=== PATIENT | male | born 2000 | race Caucasian/White ===

== ENCOUNTER → 2024-11-02 15:17 | Outpatient (REF) | payer OTHER, SELFPAY | LOC: RAD 15:17 | PROVIDERS: ATTENDING PHYSICIAN Family Medicine | DX: R74.8 Abnormal levels of other serum enzymes (principal) | CPT/HCPCS: 76700 ==

== ENCOUNTER 2025-04-10 07:12 | Emergency (ER) | payer OTHER, SELFPAY ==
[2025-04-10 07:16] VITALS: BP 142/94
--- NOTE | 2025-04-10 07:20 | ED.GENMED ---
History of Present Illness
General
Chief Complaint: Abdominal Pain
Time Seen by Provider: 04/10/25 07:14
History of Present Illness
History of Present Illness:
24-year-old male with history of fatty liver disease on Zepbound presenting to the emergency department with abdominal pain. Patient states that he woke up at 6:13 AM with sharp abdominal pain that was in the epigastric region and radiated to his
right upper quadrant. He did try laying down however and laying down made the pain worse. It is never happened to him before. No issues with his pancreas. No alcohol use. He does state that he increases that found a few days ago. Mild nausea
no vomiting. No chest pain shortness of breath. No family history of blood clots or personal history of blood clots. No recent long car rides plane rides or hemoptysis. This is never happened to him before. He has had a prior appendectomy. No
problems with his gallbladder that he is aware of.
Past History
Past History
ED Past Medical History: Asthma
ED Past Surgical History: Appendectomy and Other (Cyst removed from behind the ear, Right labrum repair of hip.)
Social History
Tobacco: Non-smoker
Alcohol: None
Drug: None
Personal: Single
Living: with family
Employment: Employed
Family History
Family History: Other
Phy Exam
Physical Exam
Physical Exam:
GENERAL: in no acute distress
HEENT: normocephalic, extraocular movements intact, moist oral mucosa
NECK: normal inspection
RESPIRATORY: no respiratory distress, clear to auscultation bilaterally
CARDIOVASCULAR: regular rate and rhythm
ABDOMEN/: soft, non-distended, right upper quadrant tenderness palpation, no rebound or guarding
EXTREMITIES: non-tender, no edema/swelling
NEUROLOGIC: awake and alert, moves all extremities
SKIN: warm
Course
Orders/Labs/Results
Orders:
Orders
04/10/25 07:20
US Abdomen Complete/Upper Urgent
Comment:
Reason For Exam: epigastric/RUQ pain
04/10/25 07:21
Ondansetron Injectable [Zofran] 4 mg IV NOW STA
04/10/25 07:24
Basic Metabolic Panel Urgent
Complete Blood Count/With Diff Urgent
LFT [Obtse-Ruae-Zcddfti] Urgent
Lipase Urgent
04/10/25 09:46
Ketorolac [Toradol] 15 mg IV NOW STA
Abnormal Lab Results
04/10/25
07:24
Glucose 150 H mg/dl
(70-99)
ALT 71 H U/L
(0-50)
04/10/25 07:24
04/10/25 07:24
Vital Signs
Initial and Last Documented VS:
Initial Vital Signs
Pulse Resp BP Pulse Ox
96 15 142/94 98
04/10/25 07:16 04/10/25 07:16 04/10/25 07:16 04/10/25 07:16
Last Documented Vital Signs
Temp Pulse Resp BP Pulse Ox
98.2 F 81 16 131/78 98
04/10/25 07:21 04/10/25 12:16 04/10/25 12:16 04/10/25 12:16 04/10/25 12:16
MDM/Problems Addressed
Differential Diagnosis Includes:
24-year-old man on Zepbound presenting to the emergency department abdominal pain that started an hour prior to arrival. Vitals unremarkable exam does show tenderness palpation to the epigastric and right upper quadrant region. Differential
consists of pancreatitis versus cholecystitis versus peptic ulcer disease. Considered cardiac etiology though patient without any risk factors and history and exam makes it less likely. Considered PE though patient is PERC negative. Will check
blood work ultrasound and give antiemetics.
*Critical Care Note
Total Time (30-74mins, 75-104mins- exclusive of procedures): Not Applicable
Update Note
Update Note:
Blood work notable for mildly elevated ALT. Ultrasound does show mild gallbladder sludge and probable gallstone versus polyp. No findings of acute cholecystitis. I did update patient on these findings. He does state that his pain is slightly
better after Toradol. Given the pain/ultrasound findings I did discuss with general surgery who recommended outpatient treatment, nonfat diet and possibly discontinuing his Zepbound. Patient does state that he will follow-up with PCP/GI doctor
regarding his stepdown dose.
Will p.o. challenge.
Unfortunately after p.o. challenge patient with worsening pain. However during my evaluation patient does appear to be resting comfortably. I discussed with Dr. Llanes from surgery who evaluated patient. After lengthy discussion patient will be
discharged. He will follow-up with his GI team down at [facility] in [facility]. Regardless contact information for Dr. Russell given. Patient will discuss with PCP regarding Zepbound and adhere to a nonfat diet. Strict return precautions given. Will
discharge this time.
ED Attending Note
-
Portions of this chart may have been created with voice recognition software.� Occasional wrong word or��sound alike� substitutions may have occurred due to the inherent limitations of voice recognition software.
Discharge Plan
Departure
Patient Disposition: Home (Routine Discharge)
Date of Disposition: 04/10/25
Time of Disposition: 12:33
Patient with high blood pressure during this ER visit?: No
Discharge Problem:
Biliary colic
Instructions: Gallstones (DC)
Prescriptions:
No Action
levalbuterol tartrate 1 PUFF HFA aerosol inhaler
1 puff inhalation R Q4HPRN PRN (Reason: asthma )
Referrals:
Bar Russell MD [Active, Surgical] - As needed
Jose Manuel Frias DO [Family Provider, Family Practice]
Interventions
Interventions:
*Risk Screen - Suicide Last Done: 04/10/25 07:27
*General Assessment Last Done: 04/10/25 07:27
*Neglect/Abuse Screening Last Done: 04/10/25 07:27
*ED- Fall Risk Assessment Last Done: 04/10/25 07:22
*ED COVID-19 Vaccine History Last Done: 04/10/25 07:22
GC-Xijjsd-Bkhgmkgnlw Assessment Last Done: 04/10/25 07:27
Discharge Date and Time
Print Language: GUINEAN
[2025-04-10 07:21] VITALS: BP 142/94
[2025-04-10 07:22] VITALS: BMI 32.9
[2025-04-10] MEDS: ZOFRAN 4 MG IV (07:25)
[2025-04-10 07:35] LABS: % Basophils 0.4 % (0-2); % Immature Granulocytes 0.1 % (0-0.5); % Lymphocytes 32.2 % (20.5-51.1); % Monocytes 4.8 % (1.7-9.3); % Neutrophils 61.5 % (42.2-75.2); Absolute Eosinophils 0.1 10^3/uL (0-0.7); Absolute Lymphocytes 2.3 10^3/uL (1.2-3.4); Absolute Monocytes 0.3 10^3/uL (0.1-0.6); Absolute Neutrophils 4.4 10^3/uL (1.4-6.5); Hematocrit 46.1 % (39.0-52.0); Hemoglobin 16.9 g/dL (13.0-18.0); Mean Corp Hgb Conc. 36.7 g/dL (33.0-37.0); Mean Corpuscular Hgb 29.5 pg (27.0-31.0); Mean Corpuscular Volume 80.5 fL (80.0-94.0); Mean Platelet Volume 10.3 fL (7.4-10.4); Nucleated Red Blood Cells % 0 % (-); Platelet Count 188 10^3/uL (130-400); Red Blood Cell Count 5.73 10^6/uL (4.70-6.10); Red Cell Dist. Width 12.7 % (11.5-14.5); White Blood Cell Count 7.1 10^3/uL (4.8-10.8)
[2025-04-10 07:51] LABS: ALT (SGPT) 71 U/L (0-50); AST (SGOT) 41 U/L (17-59); Alkaline Phosphatase 51 U/L (38-126); Blood Urea Nitrogen 17 mg/dl (9-20); Calcium 9.8 mg/dl (8.4-10.2); Carbon Dioxide 24 mmol/L (22-30); Chloride 106 mmol/L (98-107); Direct Bilirubin 0.1 mg/dl (0.0-0.4); Estimated Creatinine Clearance > 125 ml/min; Glucose 150 mg/dl (70-99); Lipase 219 U/L (23-300); Potassium 4.1 mmol/L (3.5-5.1); Sodium 143 mmol/L (135-145); Total Bilirubin 0.8 mg/dl (0.2-1.3); Total Protein 7.7 g/dl (6.3-8.2); eGFR > 60.00
[2025-04-10 09:53] VITALS: BP 130/71
[2025-04-10] MEDS: TORADOL 15 MG IV (09:53)
[2025-04-10 12:16] VITALS: BP 131/78
--- NOTE | 2025-04-10 12:35 | CON.GS ---
Consultation
-
Date/Time Consultation Performed: 04/10/25
Requesting Provider: Dipak
Performing Provider: Drew
Reason for Consultation: RUQ pain
Medical History
-
Chief Complaint: Abd pain
History of Present Illness:
24M with acute onset RUQ/epigastric pain with radiation to his back that began this am around 6:15. Described as severe and stabbing. A/w nausea. Denies f/c/v. Denies changes to urine/stool. Recently increased dose of zepbound. Sees GI at [facility] for
fatty liver. Reports 40lb wt loss over past 2 months.
Past Medical History
Past Medical History: Other (asthma, fatty liver)
Past Surgical History: Appendectomy
Social History
Tobacco: Non-Smoker
Alcohol: None
Drug: None
Living: With Family
Family History
Family History: Reviewed & Noncontributory
Allergies / Home Medications
Allergy/AdvReac Type Severity Reaction Status Date / Time
Penicillins Allergy Hives Verified 10/06/18 19:36
Bees/Wasps Allergy Unknown Uncoded 10/06/18 19:36
Dust Allergy Unknown Uncoded 10/06/18 19:36
�Medication �Instructions �Recorded �Confirmed �Type
levalbuterol tartrate 45 1 puff inhalation R Q4HPRN PRN 10/10/16 10/06/18 History
mcg/actuation aerosol inhaler asthma
Review of Systems
-
A 10 point review of systems was completed, and was negative except as per HPI.
Physical Exam
Vital Signs
Temp Pulse Resp BP Pulse Ox
98.2 F 81 16 131/78 98
04/10/25 07:21 04/10/25 12:16 04/10/25 12:16 04/10/25 12:16 04/10/25 12:16
04/09/25 04/10/25 04/11/25
06:59 06:59 06:59
Actual Weight 116 kg
Body Mass Index (BMI) 32.9
Lab Results
04/10/25 07:24
04/10/25 07:24
WBC 7.1 10^3/uL (4.8-10.8) 04/10/25 07:24
Hgb 16.9 g/dL (13.0-18.0) 04/10/25 07:24
Hct 46.1 % (39.0-52.0) 04/10/25 07:24
Plt Count 188 10^3/uL (130-400) 04/10/25 07:24
Abs Immat Gran (auto) 0.0 10^3/uL (0-0.05) 04/10/25 07:24
Neutrophils % 61.5 % (42.2-75.2) 04/10/25 07:24
Physical Exam
General: Well Developed, Well Nourished, No Apparent Distress and Comfortable
HEENT: Normocephalic and Anicteric
GI: Soft, Non Distended and Tender (minimal ttp to RUQ/epigastrium)
Skin: Warm and Dry
Neuro: AO x 3
Psych: Calm
Data Reviewed
-
Ultrasound: Image Personally Visualized and interpreted, Report Reviewed by me, Discussed with Physician, Discussed with Patient and Discussed with Family
Labs: Labs Reviewed by me, Discussed with Physician, Discussed with Patient and Discussed with Family
Old Records: Reviewed
Assessment / Plan
-
24M with bilicary colic in setting of increased zepbound dose and rapid wt loss
AFVSS, minimal ttp, no jaundice no icterus
Labs unremarkable, except isolated mild ALT elevation
US with likely sludge, no stigmata of ACC
Rec DC home
Advised he will either need to stop GLP1 or have CCY
Advised to f/u in my office or at [facility] per his preference
Advised to stay on light bland diet today and gradually return to normal diet with very low fat
Advised to hold zepbound pending d/w PCP and GI who both prescribe
Advised to return to ED if fever, vomiting, or increased pain
Surgery and recovery discussed in detail, diagrams used. All ?s answered
== END 2025-04-10 12:53 | disposition home or self-care (01) ==
LOC: EMR 07:12
PROVIDERS: EMERGENCY PHYSICIAN Student in an Organized Health Care Education/Training Program; FAMILY PHYSICIAN Family Medicine
DX: K80.50 Calculus of bile duct without cholangitis or cholecystitis without obstruction (principal); K76.0 Fatty (change of) liver, not elsewhere classified; J45.909 Unspecified asthma, uncomplicated; Z90.49 Acquired absence of other specified parts of digestive tract
CPT/HCPCS: 99284; 96374; 96375; 76700; 80048; 80076; 83690; 85025